=== PATIENT | male | born 1950 | race Caucasian/White ===

== ENCOUNTER 2017-05-17 01:00 | Emergency (ER) | payer MEDICARE, MEDICAID ==
[2017-05-17 01:00] VITALS: BMI 28.5
--- NOTE | 2017-05-17 02:37 | C.PDOC ---
History Of Present Illness 67 year old male presents to the ED [facility] for evaluation of public intoxication. Patient found intoxicated on sidewalk outdoors. Patient is poor historian due to intoxication. He denies suicidal or homicidal ideation. Chief Complaint (Nursing): Substance Abuse History Per: Patient, EMS History/Exam Limitations: intoxication Onset/Duration Of Symptoms: Unknown Modifying Factor(s): Alcohol Involuntary Hold By: None Recent travel outside of the [place]: No Past Medical History Reviewed: Historical Data, Nursing Documentation, Vital Signs Vital Signs: Last Vital Signs Temp 98 F 05/17/17 05:14 Pulse 74 05/17/17 05:14 Resp 18 05/17/17 05:14 BP 124/77 05/17/17 05:14 Pulse Ox 96 05/17/17 05:35 Family History: States: Unknown Family Hx - Social History Hx Tobacco Use: No Hx Alcohol Use: Yes Hx Substance Use: No Review Of Systems Review Of Systems: ROS cannot be obtained secondary to pt's inabilty to answer questions. (alcohol intoxication) Physical Exam - Physical Exam Appears: Non-toxic, No Acute Distress, Unkempt Skin: Normal Color, Warm, Dry Head: Atraumatic, Normacephalic, Swelling (sft tissue swelling at the top of the head) Eye(s): bilateral: Normal Inspection, PERRL, EOMI Oral Mucosa: Moist, Other (Alcohol on breath) Neck: Normal, Normal ROM, Supple Chest: Symmetrical Cardiovascular: Rhythm Regular (Rate Regular ) Respiratory: Normal Breath Sounds, No Rales, No Rhonchi, No Wheezing Gastrointestinal/Abdominal: Soft, No Tenderness Back: Normal Inspection Extremity: Normal ROM, No Deformity Extremity: Bilateral: Atraumatic Neurological/Psych: Other (Patient somnolent but arousable to verbal stimuli, moving all extremities ) Gait: Unsteady ED Course And Treatment - Laboratory Results Result Diagrams: 05/17/17 02:45 05/17/17 02:45 O2 Sat by Pulse Oximetry: 96 Progress Note: Will order CBC, BMP, and EtOH level. Patient resting comfortably. No acute distress. Vital signs stable. Will discharge pending sobriety. Disposition Counseled Patient/Family Regarding: Diagnosis - Disposition Referrals: [facility] [Outside] Disposition Time: 05:43 Condition: STABLE Forms: Talko (Sudanese) - Clinical Impression Clinical Impression: Alcohol intoxication - Scribe Statement The provider has reviewed the documentation as recorded by the Scribe (Jesus Levine) Provider Attestation: All medical record entries made by the Scribe were at my direction and personally dictated by me. I have reviewed the chart and agree that the record accurately reflects my personal performance of the history, physical exam, medical decision making, and the department course for this patient. I have also personally directed, reviewed, and agree with the discharge instructions and disposition. Physician Patient Turnover Patient Signed Over To: Billie Cleveland Handoff Comments: Patient to be discharged pending sobriey,
[2017-05-17 02:50] LABS: BASO # 0.1 K/uL (0.0-0.2); EOS # 0.2 K/uL (0.0-0.7); EOS % 2.8 % (0.0-4.0); HEMOGLOBIN 13.2 g/dL (12.0-18.0); LYMPH # 1.6 K/uL (1.0-4.3); LYMPH % 28.7 % (20.0-40.0); MEAN CELL VOLUME 99.3 fL (80.0-94.0); MEAN CORPUSCULAR HEMOGLOBIN 34.4 pg (27.0-31.0); MEAN CORPUSCULAR HGB CONC 34.6 g/dL (33.0-37.0); MEAN PLATELET VOLUME 6.8 fL (7.2-11.7); MONO # 0.8 K/uL (0.0-0.8); MONO % 14.6 % (0.0-10.0); NEUT # 2.9 K/uL (1.8-7.0); NEUT % 51.9 % (50.0-75.0); RBC 3.85 Mil/uL (4.40-5.90); RED CELL DISTRIBUTION WIDTH 14.1 % (11.5-14.5); WHITE BLOOD COUNT 5.7 K/uL (4.8-10.8)
[2017-05-17 03:00] LABS: BLOOD UREA NITROGEN 8 mg/dL (9-20); CALCIUM 8.9 mg/dl (8.6-10.4); GFR AFRICAN-AMERICAN > 60; GFR NON-AFRICAN AMERICAN > 60
--- NOTE | 2017-05-17 05:07 | CT ---
EXAM: CT Head Without Intravenous Contrast EXAM DATE/TIME: 05/17/2017 3:00 AM CLINICAL HISTORY: 67 years old, male; Pain; Headache and other: Fell; Additional info: Fall TECHNIQUE: Axial computed tomography images of the head/brain without intravenous contrast. All CT scans at this facility use one or more dose reduction techniques, viz.: automated exposure control; ma/kV adjustment per patient size (including targeted exams where dose is matched to indication; i.e. head); or iterative reconstruction technique. COMPARISON: No relevant prior studies available. FINDINGS: Small subcutaneous soft tissue swelling left parietal region with overlying skin noah. Atrophy. No intracranial hemorrhage. No intracranial edema. No evidence of infarct. The sinuses and mastoid air cells are clear. Heterogeneous sclerosis of the sphenoid bone. Similar finding was described in prior report however actual images were not provided for direct correlation. If prior studies are sent, I would be happy to correlate them to determinate whether there has been a change. There is also sclerosis within the maxillary bones incompletely imaged. As discussed in prior report, fibrous dysplasia would be a possibility. IMPRESSION: No acute intracranial injury. Sclerosis of the sphenoid and maxillary bones as above.
[2017-05-17 05:14] VITALS: BP 124/77; TEMP 98
[2017-05-17 08:39] VITALS: PULSE 78; RESP 20; O2SAT 98
== END 2017-05-17 14:38 | disposition left against medical advice (07) ==
LOC: C.ER 01:00
DX: F10.129 Alcohol abuse with intoxication, unspecified (principal); Y90.8 Blood alcohol level of 240 mg/100 ml or more
CPT/HCPCS: 36415; 70450; 80048; 82948; 85025; 99285; G0480